=== PATIENT | female | born 1975 | race Caucasian/White ===

== ENCOUNTER → 2017-04-28 | Outpatient (CLI) | payer BC ==
--- NOTE | 2017-04-28 08:02 | MR ---
EXAMINATION TYPE: MR brain/cspine wo/w DATE OF EXAM: 04/28/2017 COMPARISON: NONE HISTORY: MS TECHNIQUE: Multiplanar, multisequence images of the brain and brainstem is performed without and with IV contras t, utilizing 10 mL intravenous MultiHance gadolinium contrast is administered intravenously. Demyeli nating disease protocol with additional Sagittal Flair sequence performed. FINDINGS: T2 Lesions Present : Yes Approximate Number of Lesions: 7 Locations Identified : Subcortical Size of Reference Lesion(s): 1. 1.9 cm x 0.8 cm x 0.8 cm on axial image 23 and sagittal image 20 2 0.7 cm x 0.4 cm x 0.5 cm on axial image 18 and sagittal image 12 Enhancing Lesion(s) Present: No T1 Hypointense Lesion(s) Present: No Change from Prior: Interval increase in size of lesion #1 Midline structures are unremarkable. There is a normal craniocervical junction. Echoplanar diffusion imaging is normal. There are normal vascular flow voids. The orbits are normal. There is no evidence of a CP angle mass lesion. There is no mass effect, midline shift or intracranial blood. Following intravenous administration of gadolinium, I do not see evidence of abnormal enhancement. COMPARISON: The cervical spine is compared to a previous study dated 01/14/2013. FINDINGS: Prevertebral soft tissues are normal. Vertebral body height and alignment are maintained. Atlantoaxial relationships are normal. There is a normal craniocervical junction. There is a lot of artifact through the lower cervical cord . No discrete plaques are seen. There is no abnormal enhancement. At C2-3 and C3-4, no definite abnormality is seen. At C4-C5, the intervertebral foramina are widely maintained. There is minimal disc displacement. The facet and uncovertebral joints are unremarkable. At C5-C6, the intervertebral foramina are well maintained. There is no significant compressive discop athy. The facet and uncovertebral joints are unremarkable. At C6-7 and C7-T1, no definite abnormality is seen. IMPRESSION: 1. STABLE NUMBER OF PLAQUES. 2. ONE OF THE PLAQUES IN THE RIGHT FRONTAL REGION HAS INCREASED IN SIZE FROM PREVIOUS. 3. NO ACUTE INTRACRANIAL ABNORMALITY. 4. NO DEFINITE MS PLAQUES WITHIN THE CERVICAL SPINE. 5. NO SIGNIFICANT COMPRESSIVE DISCOPATHY OR NEURAL COMPRESSION. IMPRESSION:
== END | disposition home or self-care (01) ==
LOC: RADMRIMAIN 06:18
PROVIDERS: ATTEND Psychiatry & Neurology Neurology
DX: G93.89 Other specified disorders of brain (principal)
CPT/HCPCS: 70553; 72156; A9577

== ENCOUNTER → 2017-04-29 | Outpatient (CLI) | payer BC ==
--- NOTE | 2017-04-30 12:18 | MR ---
EXAMINATION TYPE: MR thoracic spine wo/w con DATE OF EXAM: 04/29/2017 COMPARISON: NONE HISTORY: Middle back pain, MS CONTRAST: Performed utilizing 10 mL intravenous MultiHance gadolinium contrast. TECHNIQUE: Multiplanar, multiecho imaging on a 3.0 Niecy magnet is performed through the thoracic spi ne. Spinal cord maintains normal signal through its visualized course. Vertebral body alignment is normal. Vertebral body heights are preserved. Disc heights are preserved. Disc hydration levels are preserved. T11-12: There is left facet hypertrophy with posterior lateral thecal sac compression. This comes in close approximation with the spinal cord. Cord deformity is not identified. No spinal canal stenosis is evident. No abnormal enhancement is evident. Signal through the spinal cord appears normal. IMPRESSIONS: 1. Facet hypertrophy left T11-12 with posterior lateral thecal sac compression and close approximatio n with the spinal cord.
== END | disposition home or self-care (01) ==
LOC: RADMRIMAIN 07:31
PROVIDERS: ATTEND Psychiatry & Neurology Neurology
DX: G35 Multiple sclerosis (principal); M47.814 Spondylosis without myelopathy or radiculopathy, thoracic region
CPT/HCPCS: 72157; A9577

== ENCOUNTER → 2017-12-06 | Outpatient (CLI) | payer BC ==
--- NOTE | 2017-12-06 08:33 | CT ---
EXAMINATION TYPE: CT abdomen pelvis wo con DATE OF EXAM: 12/06/2017 HISTORY: gross hematuria CT DLP: 255.4 mGycm. Automated Exposure Control for Dose Reduction was Utilized. TECHNIQUE: CT scan of the abdomen and pelvis is performed without oral or IV contrast. COMPARISON: NONE FINDINGS: Within the limitations of a non-contrast study, the following observations are made. LUNG BASES: No significant abnormality is appreciated. LIVER/GB: No significant abnormality is appreciated. PANCREAS: No significant abnormality is seen. SPLEEN: No significant abnormality is seen. ADRENALS: No significant abnormality is seen. KIDNEYS: No renal stones or hydronephrosis is seen bilaterally. No intraluminal calculus is seen in p oorly distended bladder. BOWEL: Evaluation bowel is slightly suboptimal secondary to lack of enteric contrast. There is no ramiro picious small or large bowel dilatation. Normal-appearing appendix is ascending medially from base of cecum in the mid right pelvis. There is mild prominence of fecal material in the right and transvers e colon. GENITAL ORGANS: There is retroverted uterus. Scattered pelvic phleboliths are seen. LYMPH NODES: No greater than 1cm abdominal or pelvic lymph nodes are appreciated. OSSEOUS STRUCTURES: There is levoconvex scoliosis centered in the mid lumbar spine. There is transiti onal-type L6 vertebra which is sacralized on the left. There is narrowing and sclerosis with spurring at this LEFT L6 S1 articulation. Facet arthropathy lower lumbar levels is seen. OTHER: No significant additional abnormality is seen. IMPRESSION: No renal stones or hydronephrosis is seen bilaterally. No significant acute finding is se en to account for patient's symptoms.
== END | disposition home or self-care (01) ==
LOC: RADCTMAIN 06:49
PROVIDERS: ATTEND Family Medicine
DX: R31.9 Hematuria, unspecified (principal); Z88.8 Allergy status to other drugs, medicaments and biological substances
CPT/HCPCS: 74176

== ENCOUNTER → 2018-08-28 | Outpatient (CLI) | payer BC ==
--- NOTE | 2018-08-28 08:16 | MR ---
EXAMINATION TYPE: MR brain wo/w con DATE OF EXAM: 08/28/2018 COMPARISON: Most recent MRI brain April 28, 2017. HISTORY: MS progress study. Symptoms of dizziness or hearing loss per patient. TECHNIQUE: Multiplanar, multisequence images of the brain and brainstem is performed without and with IV contras t, utilizing 7 mL intravenous Gadavist gadolinium contrast is administered intravenously. Demyelinat ing disease protocol with additional Sagittal Flair sequence performed. FINDINGS: T2 Lesions Present : Yes Approximate Number of Lesions: Approximately 10-15 Locations Identified : Scattered Size of Reference Lesion(s): 1. Large is high right frontal subcortical lesion measuring 1.6 x 0.7 x 1.0 cm on axial image 23 and sagittal image 19 fairly stable 2 7 x 6 x 4 mm left frontal periventricular lesion on axial image 17 and sagittal image 11 stable Enhancing Lesion(s) Present: No T1 Hypointense Lesion(s) Present: Yes Change from Prior: In retrospect stable, smaller lesions identified on current study I can see in ret rospect on most recent prior. Diffusion weighted images demonstrate no evidence of a recent infarct or other diffusion abnormality. There is no worrisome extra-axial fluid collection. The ventricular system and cisternal spaces ar e normal in size and appearance. The brain volume is age appropriate. Midline structures demonstrate normal morphology. The craniocervical junction appears within normal limits. Post contrast images demonstrate no abnormal enhancement. The dural venous sinuses appear pa tent. The visualized sinuses are clear and the globes are intact. IMPRESSION: Mild to moderate nonspecific white matter changes most likely on basis of patient's known multiple sclerosis. No definitive new or enhancing lesions are seen. No significant change from most recent MRI.
== END | disposition home or self-care (01) ==
LOC: RADMRIMAIN 06:32
PROVIDERS: ATTEND Psychiatry & Neurology Neurology
DX: R90.89 Other abnormal findings on diagnostic imaging of central nervous system (principal); G35 Multiple sclerosis
CPT/HCPCS: 70553; A9585

== ENCOUNTER → 2018-09-01 | Outpatient (CLI) | payer BC ==
[2018-09-01 12:04] LABS: Basophils # (A) 0.1 k/uL (0-0.2); Basophils % (A) 1 %; Eosinophils # (A) 0.1 k/uL (0-0.7); Eosinophils % (A) 2 %; HCT 40.9 % (34.0-46.0); HGB 13.1 gm/dL (11.4-16.0); Lymphocytes # (A) 1.4 k/uL (1.0-4.8); Lymphocytes % (A) 25 %; MCH 32.6 pg (25.0-35.0); MCV 101.9 fL (80.0-100.0); Mean Platelet Volume 6.9; Monocytes # (A) 0.6 k/uL (0-1.0); Monocytes % (A) 11 %; Neutrophils # (A) 3.2 k/uL (1.3-7.7); Neutrophils % (A) 59 %; Platelet Count 255 k/uL (150-450); RBC 4.01 m/uL (3.80-5.40); RDW 12.3 % (11.5-15.5); WBC 5.3 k/uL (3.8-10.6)
[2018-09-01 16:41] LABS: Vitamin D 25 Hydroxy 48.6 ng/mL (30.0-100.0)
[2018-09-01 22:55] LABS: T4, Free (Free Thyroxine) 1.2 ng/dL (0.80-1.80)
[2018-09-01 23:02] LABS: Anion Gap 4.2 mmol/L (4.00-12.00); Calcium 9.4 mg/dL (8.7-10.3); Carbon Dioxide 30.8 mmol/L (21.6-31.8); Potassium 4.8 mmol/L (3.5-5.5)
== END | disposition home or self-care (01) ==
LOC: LABWHC1 10:27
PROVIDERS: ATTEND Psychiatry & Neurology Neurology
DX: E55.9 Vitamin D deficiency, unspecified (principal); G35 Multiple sclerosis; E53.9 Vitamin B deficiency, unspecified; R53.83 Other fatigue
CPT/HCPCS: 36415; 80048; 82306; 82607; 84439; 84443; 85025

== ENCOUNTER → 2020-04-27 | Outpatient (CLI) | payer BC ==
--- NOTE | 2020-04-27 15:55 | CT ---
EXAMINATION TYPE: CT pelvis w con DATE OF EXAM: 04/27/2020 COMPARISON: CT 12/06/2017 HISTORY: Ovarian cyst, ovarian mass CT DLP: 461.3 mGycm Automated exposure control for dose reduction was used. TECHNIQUE: Helical acquisition of images through the pelvis have been completed. CONTRAST: Performed with Oral Contrast and with IV Contrast, patient injected with 100 mL of Isovue 300. FINDINGS: REPRODUCTIVE ORGANS: Suspect left ovary is present within the pelvis, uterus and right ovary are not seen BOWEL: No significant abnormality is seen. FREE AIR: No Free Air visible. ASCITES: None visible. PELVIC ADENOPATHY: None visualized. RETROPERITONEAL ADENOPATHY: No Retroperitoneal Adenopathy visible. URINARY BLADDER: Distended with urine. OSSEOUS STRUCTURES: Suspect a transitional vertebral body, partial sacralization of L5 on the left. IMPRESSION: POSTOP CHANGES. CORRELATE WITH APPROPRIATE SURGICAL HISTORY.
== END | disposition home or self-care (01) ==
LOC: RADCTMAIN 13:32
PROVIDERS: ATTEND Family Medicine
DX: N83.209 Unspecified ovarian cyst, unspecified side (principal); Z98.890 Other specified postprocedural states
CPT/HCPCS: 72193; Q9967

== ENCOUNTER → 2020-11-17 | Outpatient (CLI) | payer BC ==
--- NOTE | 2020-11-17 10:06 | MR ---
EXAMINATION TYPE: MR brain/cspine wo/w DATE OF EXAM: 11/17/2020 COMPARISON: 04/28/2017, 08/28/2018 HISTORY: MS, winnie weakness/numbness TECHNIQUE: Multiplanar, multisequence images of the brain and brainstem is performed without and with IV contras t, utilizing 7 mL intravenous Gadavist . FINDINGS: T2 Lesions Present : Yes Approximate Number of Lesions: Approximately 10-15 Locations Identified : Scattered Size of Reference Lesion(s): 1. Large is high right frontal subcortical lesion measuring 1.6 x 0.7 x 1.0 fairly stable 2. 7 x 6 x 4 mm left frontal periventricular lesion stable Enhancing Lesion(s) Present: No Diffusion weighted imaging demonstrates no diagnostic evidence of acute ischemia Midline structures demonstrate normal morphology. Cerebellar tonsils low-lying position of the level. Post contrast images demonstrate no abnormal enhancement. The dural venous sinuses appear patent. C hanges of chronic sinusitis. Subcutaneous nodule overlying the superior margin of the calvarium sligh tly paramedian the right is too small to characterize. IMPRESSION: 1. Stable nonspecific white matter lesions unchanged from the prior exam. No enhancing lesions. Demye linating disease in the differential diagnosis. 2. Low-lying cerebellar tonsils extending approximately 1 mm below the foramen magnum. No tonsillar b eaking. MRI CERVICAL SPINE: CLINICAL HISTORY: MS TECHNIQUE: Multiplanar, multisequence imaging of the cervical spine is performed without and with IV contrast, cc of gadolinium was given intravenously. COMPARISON: 04/28/2017 FINDINGS: Exam limited by motion artifact. Sagittal images of the cervical spine show the craniocervical junction to appear within normal limits . The cervical and upper thoracic spinal cord is normal in course, caliber, and signal. Vertebral a lignment is anatomic. The vertebral body and intravertebral disk heights are normal. The bone marro w signal intensity is within normal limits. Axial images show there is no significant focal disk disease, spinal canal stenosis, neural foraminal narrowing, or spinal cord compromise at any cervical level. At C2-3 and C3-4, no definite abnormality is seen. At C4-C5, the intervertebral foramina are widely maintained. There is mild disc bulging. The facet an d uncovertebral joints are unremarkable. At C5-C6, the intervertebral foramina are well maintained. There is no significant compressive discop athy. The facet and uncovertebral joints are unremarkable. Broad-based posterior bulging with posteri or spondylosis stable. At C6-7 and C7-T1, limited by motion artifact. Could not exclude disc bulging at C6-7. IMPRESSION: 1. Multilevel hypertrophic and degenerative disc disease. Disc bulging is C4-5 and C5-6 2. No enhancement within the cervical spinal cord. Artifact limits assessment of the spinal cord for abnormal signal grossly no definitive area of abnormal signal noted.
== END | disposition home or self-care (01) ==
LOC: RADMRIMAIN 07:46
PROVIDERS: ATTEND Psychiatry & Neurology Neurology
DX: M50.221 Other cervical disc displacement at C4-C5 level (principal); M50.30 Other cervical disc degeneration, unspecified cervical region; G35 Multiple sclerosis
CPT/HCPCS: 70553; 72156; A9585

== ENCOUNTER → 2021-03-05 | Day surgery (SDC) | payer BC ==
[2021-03-03 15:44] VITALS: BMI 28.3
[~2021-03-05] MED LIST: LACTATED RINGERS 1,000 ML IV SCH; LIDOCAINE 1% (10MG/ML) FOR IV START INTRADERMA ONE; LIDOCAINE 1% INJ 10MG/ML (20 ML MDV) ONE; ONDANSETRON 4 MG/2 ML VIAL ONE; PROPOFOL 10 MG/ML 20 ML VIAL IV ONE
[2021-03-05 13:16] VITALS: TEMP 97.8
[2021-03-05 13:20] LABS: Glucose,Whole Blood 94 mg/dL (75-99)
--- NOTE | 2021-03-05 14:10 | P.PCN ---
Date of Procedure: 03/05/21 Procedure(s) Performed: BRIEF HISTORY: Patient is a 45-year-old pleasant white female scheduled for an elective colonoscopy as a part of evaluation of lower abdominal pain, abdominal bloating and alternating diarrhea and constipation for the last several years duration. Her symptoms are progressively getting worse lately. PROCEDURE PERFORMED: Colonoscopy. PREOPERATIVE DIAGNOSIS: Lower abdominal pain/alternating diarrhea and constipation of several years duration. IV sedation per Anesthesia. PROCEDURE: After informed consent was obtained, the patient, was brought into the endoscopy unit. IV sedation was administered by Anesthesia under continuous monitoring. Digital rectal examination was normal. Initially the Olympus CF-160 flexible video colonoscope was then inserted in the rectum, gradually advanced into the cecum without any difficulty. Careful examination was performed as the scope was gradually being withdrawn. Ileocecal valve and the appendiceal orifice were visualized and appeared normal. Prep was fair.. Mucosa of the cecum, ascending colon, transverse colon, descending colon, sigmoid colon, and rectum appeared normal. Retroflexion was performed in the rectum and no lesions were seen. The patient tolerated the procedure well. IMPRESSION: Normal-appearing colon from rectum to cecum with no evidence of colitis or colorectal neoplasia. RECOMMENDATIONS: Findings of this examination were discussed with the patient as well as a family. She was advised to be on a high-fiber diet and fiber supplements every day. She can have a repeat screening colonoscopy in 10 years.
[2021-03-05 14:13] VITALS: RESP 17
[2021-03-05 14:28] VITALS: BP 130/86; PULSE 72
== END ==
LOC: ORWHC2ENDO 10:39
PROVIDERS: ATTEND Internal Medicine Gastroenterology
DX: R19.7 Diarrhea, unspecified (principal); Z79.899 Other long term (current) drug therapy; Z88.8 Allergy status to other drugs, medicaments and biological substances
CPT/HCPCS: 45378; J2405; J2001; J2704

== ENCOUNTER → 2022-04-08 | Outpatient (CLI) | payer BC ==
--- NOTE | 2022-04-11 09:08 | MM ---
Reason for Exam: Screening (asymptomatic). Baseline mammogram. Patient History: Menarche at age 12. First Full-Term at age 19. Left ovary removed at age 27. Hysterectomy at age 27. Perimenopausal. Maternal cousin had breast cancer. Risk Values: Sho 5 year model risk: 0.6%. NCI Lifetime model risk: 6.9%. Prior Study Comparison: Patient's first Mammogram. Tissue Density: The breast tissue is heterogeneously dense. This may lower the sensitivity of mammography. Findings: Analyzed By CAD. There is no suspicious group of microcalcifications or new suspicious mass in either breast. Overall Assessment: Negative, BI-RAD 1 Management: Screening Mammogram of both breasts in 1 year. A clinical breast exam by your physician is recommended on an annual basis and results should be correlated with mammographic findings. Electronically signed and approved by: Janusz Gauthier M.D. Radiologis
== END | disposition home or self-care (01) ==
LOC: RADMAMWWP 15:49
PROVIDERS: ATTEND Family Medicine
DX: Z12.31 Encounter for screening mammogram for malignant neoplasm of breast (principal); Z80.3 Family history of malignant neoplasm of breast
CPT/HCPCS: 77063; 77067

== ENCOUNTER → 2023-08-15 | Outpatient (CLI) | payer BC ==
--- NOTE | 2023-08-16 19:20 | MM ---
Reason for Exam: Screening (asymptomatic). Last mammogram was performed 1 year(s) and 4 month(s) ago. Patient History: Menarche at age 12. First Full-Term at age 19. Left ovary removed at age 27. Hysterectomy at age 27. Perimenopausal. Maternal cousin had breast cancer. Risk Values: Sho 5 year model risk: 0.7%. NCI Lifetime model risk: 6.7%. Prior Study Comparison: 04/08/2022 Bilateral MG 3D screening mammo w/cad, [facility]. Tissue Density: The breast tissue is heterogeneously dense. This may lower the sensitivity of mammography. Findings: Analyzed By CAD. Chronic nodularity medially on the right. There is no suspicious group of microcalcifications or new suspicious mass in either breast. Overall Assessment: Benign, BI-RAD 2 Management: Screening Mammogram of both breasts in 1 year. . Patient should continue monthly self-breast exams. A clinical breast exam by your physician is recommended on an annual basis. This exam should not preclude additional follow-up of suspicious palpable abnormalities. Note on Sho scores and lifetime risk: 1. A Sho score greater than 3% is considered moderate risk. If this is the case, consider specialist referral to assess eligibility for a risk reducing agent. 2. If overall lifetime risk for the development of breast cancer is 20% or higher, the patient may qualify for future screening with alternating mammogram and breast MRI. Electronically signed and approved by: Peyton Mart M.D. Radiologist
== END | disposition home or self-care (01) ==
LOC: RADMAMWWP 14:49
PROVIDERS: ATTEND Family Medicine
DX: Z12.31 Encounter for screening mammogram for malignant neoplasm of breast (principal); Z80.3 Family history of malignant neoplasm of breast
CPT/HCPCS: 77063; 77067

== ENCOUNTER → 2023-09-11 | Outpatient (CLI) | payer BC ==
--- NOTE | 2023-09-11 14:03 | MR ---
EXAMINATION TYPE: MR brain wo/w con DATE OF EXAM: 09/11/2023 COMPARISON: MR brain C-spine 11/17/2020, MRI brain 08/28/2018 HISTORY: MS follow-up. TECHNIQUE: Multiplanar, multisequence images of the brain and brainstem is performed without and with IV contras t, utilizing 8 mL intravenous Gadavist . FINDINGS: Diffusion weighted images demonstrate no evidence of a recent infarct or other diffusion ab normality. There is no extra-axial fluid collection. Stable few T2/FLAIR hyperintense subcortical an d periventricular white matter lesions from prior examinations. Largest is within the right frontal lobe subcortical white matter measuring 1.6 cm. Approximately 10-15. No corresponding enhancement. Th e ventricular system and cisternal spaces are normal in size and appearance. The brain volume is age appropriate. Midline structures demonstrate normal morphology. Similar low lying cerebellar tonsils. Post contras t images demonstrate no abnormal enhancement. The dural venous sinuses appear patent. The visualized sinuses are clear and the globes are intact. IMPRESSION: 1. No evidence for acute/subacute ischemia. 2. Stable nonspecific white matter changes likely related to patient's known multiple sclerosis. No d efinitive new or enhancing lesions are seen. No significant change from prior MRI.
== END | disposition home or self-care (01) ==
LOC: RADMRIMAIN 12:56
PROVIDERS: ATTEND Psychiatry & Neurology Neurology
DX: G35 Multiple sclerosis (principal); R90.82 White matter disease, unspecified
CPT/HCPCS: 70553; A9585